=== PATIENT | male | born 1970 | race Caucasian/White ===

== ENCOUNTER 2016-09-07 05:47 | Emergency (ER) | payer OTHER ==
[~2016-09-07] VITALS: Ht 182.9 cm; Wt 155.1 kg
[~2016-09-07 05:47] MED LIST: ALBUTEROL17 GM INH; ALFALFA600 MG; ALLEGRA60 M1 PO; AMOXICILLIN PO; DELTASONE20 MG PO; DILAUDID2 MG PO; FLONASE 0.05% N16 G1; HYDROMET SYRUP480 ML PO; LEVAQUIN750 MG PO; MEDROL4 MG/DOSE- PO; MULTI-DAY VITAM1 TAB PO; PRILOSEC PO; VERAMYST; VIT C PO; ZYRTEC10 M2 PO
[2016-09-07] MEDS ORDERED: NO MEDICATIONS (05:59)
== END 2016-09-07 06:26 | disposition home or self-care (01) ==
LOC: SED 05:47
DX: J40 Bronchitis, not specified as acute or chronic (principal); K21.9 Gastro-esophageal reflux disease without esophagitis; F17.210 Nicotine dependence, cigarettes, uncomplicated
CPT/HCPCS: 99283